=== PATIENT | female | born 1995 ===

== ENCOUNTER 2020-01-06 15:32 | Inpatient (IN) | payer MEDICAID, SELFPAY ==
[2020-01-06 15:57] VITALS: BMI 31.2
--- NOTE | 2020-01-06 16:14 | PDOC.FPROB ---
"FMR OB H&P: HPI - History of Present Illness Chief Complaint: Elevated BP in clinic, low amniotic fluid Indentification: 24yo History of Present Illness: Courtney was seen in clinic today for a growth scan. It was noted that her DEWEY was 1.7 and she was sent to L&D for evaluation and probable delivery. US revealed breech presentation with fundal posterior placenta. Her BP in clinic today was 140/79. Primary Care Physician: TURNER Chery FMR OB H&P: Current - Care : 2 Para: 1001 Gestational age: 38.0 Due date: 01/20/2020 Dating Criteria: LMP/8.0wk sono - OB Labs Blood type: A RH: positive Antibody Screen: negative HIV: negative RPR: negative HepBsAg: negative Rubella: immune 1 hour gtt: Passed GBS: negative Additional labs: Hep C negative - Anatomy Survey Anatomy survey: Normal. Male. Posterior placenta. FMR OB H&P: History - Past Medical History PMH: II/IV heart murmur - OB History OB History: Prior delivered in [place] @ 40wks via pLTCS for arrest of labor. Vertical skin incision. 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 - Family History Family History: Congenital heart defect in 1st cousin, required surgery FMR OB H&P: Medications - Current Home Medications: Medication Instructions Recorded Confirmed Type Pnv No.95/Ferrous Fum/Folic AC 1 tablet PO DAILY 01/06/20 01/06/20 History [ Vitamins Tablet] Allergies/Adverse Reactions: Allergies Allergy/AdvReac Type Severity Reaction Status Date / Time No Known Allergies Allergy Unverified 01/06/20 16:01 FMR OB H&P: ROS - Review of Systems General: denies: fever/chills, weight/appetite/sleep changes, night sweats, fatigue Eyes: denies: eye pain, vision changes ENT: denies: nasal congestion, rhinorrhea, sore throat Cardiovascular: denies: chest pain, palpitation, edema Respiratory: denies: cough, congestion, shortness of breath Gastrointestinal: denies: abdominal pain, nausea, vomiting, diarrhea, constipation Genitourinary (Female): denies: incontinence, dysuria, hematuria Musculoskeletal: denies: pain, stiffness, tenderness Neurologic: denies: numbness, syncope, seizures Integumentary: denies: itching, rash, lesions FMR OB H&P: Vital Signs - Maternal Vital signs: BP 110/60 | Pulse 110 - Heart Tones Baseline: 140 Variability: moderate Acceleration: present Deceleration: absent Category: category 1 [place] contractions every: 3-4 FMR OB H&P: Physical Exam - Physical Exam General: NAD, awake, alert and oriented HEENT: normocephalic and atraumatic, PERRLA, EOMI, MMM, conjunctiva clear, grossly normal vision, grossly normal hearing Neck: supple, trachea midline Breast: symmetric Heart: RRR, normal S1/S2, no edema General: CTAB, no respiratory distress, good air movement, no rales/rhonchi, no wheezing Abdomen: soft, gravid Musculoskeletal: normal gait and station, pulses present Neurological: cranial nerves II through XII intact Skin: no rash, good tugor Lymphatic: no unusual bruising or bleeding, no purpura, no petechia Psychiatric: intact recent and remote memory, good judgement and insight FMR OB H&P: A/P - Problem List (1) Oligohydramnios Current Visit: Yes Status: Acute Code(s): O41.00X0 - OLIGOHYDRAMNIOS, UNSP TRIMESTER, NOT APPLICABLE OR UNSP (2) History of delivery Current Visit: Yes Status: Acute Code(s): Z98.891 - HISTORY OF UTERINE SCAR FROM PREVIOUS SURGERY Disposition: 1. Oligohydramnios - repeat BPP 02/26. DEWEY 1.9. (DEWEY in clinic measured 1.7) - NST reactive. Category 1 strip. - Discussed need for expedited delivery and breech presentation and patient agreed to repeat section. 2. Term sIUP - 38.0 weeks EGA today. NIKA 01/20/2020. - Plan for repeat later tonight or tomorrow morning, depending on staffing. PCP: Dr. Chery, [facility] Discussion: Date/Time: 01/06/20 2252 This H&P was discussed with [] and [] who agree with the above documentation and plan."
[2020-01-06] MEDS ORDERED: Ondansetron PF 4 MG/2 ML Vial IVP PRN (16:17)
[2020-01-06] MEDS ORDERED: hydrALAZINE 20 MG/ML VIAL SLOW IVP PRN (16:17)
[2020-01-06] MEDS ORDERED: Promethazine HCl 25 MG/ML VIAL IM PRN (16:17)
[2020-01-06] MEDS ORDERED: Acetaminophen 500 MG TAB PO PRN (16:17)
[2020-01-06] MEDS: Lactated Ringer's 1,000 ML IV SCH ×2 (16:50→19:04)
[2020-01-06 17:26] LABS: Hemoglobin 12.3 g/dL (12.0-16.0); Mean Corpuscular HGB CONC 33.4 g/dL (32.0-36.0); Mean Corpuscular Hemoglobin 29.5 pg (27.0-31.0); Mean Corpuscular Volume 88.3 fL (78.0-98.0); Mean Platelet Volume 8.1 fL (7.4-10.4); Platelet Count 239 thou/uL (130-400); Red Blood Cell (RBC) Count 4.16 mill/uL (4.20-5.40); White Blood Cell (WBC) Count 9.1 thou/uL (4.8-10.8)
[2020-01-06 18:12] LABS: HIV (1/2) Antibody/Antigen Non-Reactive (NonReactive); HIV 1/2 INDEX 0.13 S/CO (<1.00); Hep B Surf Ag Non-Reactive S/CO (NonReactive); Syphilis Antibody Nonreactive (Nonreactive); Syphilis Antibody Index 0.02 S/CO (<1.00 Non-Reactive)
[2020-01-07] MEDS ORDERED: Bicitra 30 ML UDCUP PO SCH (07:45)
[2020-01-07] MEDS ORDERED: CEFAZOLIN 2 GM in Premix Bag 1 BAG IVPB SCH (07:45)
[2020-01-07] MEDS ORDERED: Bicitra 30 ML UDCUP ONE (07:47)
--- NOTE | 2020-01-07 08:33 | PDOC.BPN ---
- Brief Progress Note 24 year old at 38.1 wks by LMP/8.0 wk sono presented yesterday to L&D due to oligohydramnios and elevated BP's noted in clinic. Patient with history of prior C/S x1. She initially desired TOLAC but was also noted to have breech presentation with low fluid. BPP repeated yesterday upon arrival to L&D and noted to be 8/10, with two points off for fluid. Again, oligohydramnios noted on sono performed yesterday (1.9 cm). No elevated BP's noted since being on L& D. Plan for routine repeat C/S this morning. Discussed plan of care with Dr. Singleton who is agreeable.
--- NOTE | 2020-01-07 08:51 | ULT ---
BIOPHYSICAL PROFILE: History: Low amniotic fluid index in clinic. FINDINGS: Fetus is evaluated over thirty minutes for movement, tone, and breathing. Additiona lly, amniotic fluid is evaluated. Amniotic fluid index equals approximately 1.8 cm, evidence for oligohydramnios. tone, mateo athing, and movements are unremarkable. Fetus is in breech presentation with an anterior placen ta and heart rate of 163 beats/minute. IMPRESSION: biophysical score is 6/8 with low amniotic fluid. These findings were given verbally to Dr. Ritter by the cytogenetics technologist performing the exami inez. POS: INGRID
[2020-01-07] MEDS ORDERED: MORPHINE 5 MG/10 ML PF VIAL ONE (09:30)
[2020-01-07] MEDS ORDERED: PHENYLEPHRINE-NS 100 MCG/ML 10 ML SYRINGE ONE (09:31)
[2020-01-07] MEDS ORDERED: Oxytocin 10 UNITS/ML VIAL ONE ×2 (09:31→14:11)
[2020-01-07] MEDS ORDERED: Dexamethasone 4 mg/ml Vial ONE (09:31)
[2020-01-07] MEDS ORDERED: Ketorolac Tromethamine 30 MG/ML VIAL ONE (09:31)
[2020-01-07] MEDS ORDERED: Ondansetron PF 4 MG/2 ML Vial ONE (09:31)
[2020-01-07] MEDS ORDERED: Naloxone HCl 0.4 mg/ml Vial IV PRN (10:56)
[2020-01-07] MEDS ORDERED: diphenhydrAMINE 50 MG/ML VIAL IVP PRN (10:56)
[2020-01-07] MEDS ORDERED: Naloxone HCl 0.4 mg/ml Vial IVP PRN ×2 (10:56)
[2020-01-07] MEDS ORDERED: Meperidine HCl/PF 25 MG/ML VIAL SLOW IVP PRN (10:56)
[2020-01-07] MEDS ORDERED: Ondansetron HCl/PF 4 MG/2 ML Vial IVP PRN (10:56)
[2020-01-07] MEDS ORDERED: Ondansetron PF 4 MG/2 ML Vial IVP PRN ×2 (10:56→17:20)
[2020-01-07] MEDS ORDERED: Promethazine HCl 25 MG/ML VIAL IM PRN (10:56)
[2020-01-07] MEDS ORDERED: L&D-Morphine 4 MG/ML VIAL SLOW IVP PRN (10:56)
[2020-01-07] MEDS ORDERED: HYDROmorphone 2 MG/ML VIAL SLOW IVP PRN (10:56)
[2020-01-07] MEDS ORDERED: Promethazine HCl 25 MG SUPP PR PRN (10:56)
[2020-01-07] MEDS ORDERED: Ketorolac Tromethamine 30 MG/ML VIAL IVP SCH (11:00)
[2020-01-07] MEDS ORDERED: Communication Order-Pharmacy FS SCH (11:00)
[2020-01-07] MEDS: Lactated Ringer's 1,000 ML IV SCH ×3 (11:44→21:32)
[2020-01-07] MEDS ORDERED: EPHEDRINE 25 MG/5 ML SYRINGE ONE (13:47)
[2020-01-07 14:18] LABS: Actual Bicarbonate (HCO3a) 21.2 mEq/L (22-28); Base Excess (BEa) -4.7 mEq/L (-2.0 to +3.0)
--- NOTE | 2020-01-07 14:43 | PDOC.EVN ---
Event Note - Event Note Event Note: OBGYN CS Note I was scrubbed and assisted with this repeat LTCS for oligo and Narendra breech, Early Term (38 weeks). Surgeons: Vik and Alma as residents. Staff and assist: I assisted with mauriceau maneuver for delivery of head. Baby Data: Apgars 8/9 baby male vigourous, Baby stooled (mec) as we were delivering. Hysterotomy closed in 2 layers with Avatene used for small oozing sites. ABD closed after hemostasis assured. Counts correct. Gases requested due to oligo and breech Skin closed with tiffanie. See full dictation please
--- NOTE | 2020-01-07 15:06 | PDOC.OPDEL ---
OB Operative/Delivery Note - Additional Findings/Plan Compilations/Other Findings: Procedure Note Date of Procedure: Resident Surgeons: Alma / Vik Attending Surgeon: Mani Procedure: Repeat low transverse caesarean section, with vertical skin incision. Preoperative Diagnosis: 1)Term intrauterine 2)Previous 3)oligohydramnios 4) breech Postoperative Diagnosis: 1)same as above plus any other findings during surgery Anesthesia: spinal Indications: The patient is a 24year old female at 38.1 weeks gestation who presents for a repeat indicated for oligohydramnios and breech presentation with history of previous section. . Procedure in Detail: After risks, benefits, and alternatives were explained to the patient, she gave informed consent. Pre-operative antibiotics included Cefazolin 2 gram IV. The patient was taken to the operating room and spinal anesthesia was initiated. She was placed in the supine position with a left tilt and prepped and draped in usual sterile fashion. After excision of the old scar, a vertical skin incision was made with a scalpel and carried down to the level of the fascia which was sharply nicked. The recti were divided digitally and retracted manually. The peritoneum was entered bluntly and retracted manually. An rose mary O retractor was placed. A low transverse score was made with the scalpel and the uterus was entered in the midline with the scalpel. Clear fluid was seen. The hysterotomy was extended manually. The was noted to be jeannette breech and was delivered in usual breech fashion, buttocks first. Mouth and nares were bulb suctioned. Cord clamped and cut and grossly normal male was handed to waiting nurse. Cord blood was obtained. Cord gases were collected. Placenta was manually extracted, found to be intact with 3 vessel cord and discarded. The endometrium was curetted with a dry lap. The uterus was closed with a running locking #1 monocryl suture followed by a running non-locking #1 monocryl imbricating suture. Following this hemostasis was noted. The hysterotomy was again noted to be hemostatic. The fascia was closed with a running non-locking 0-PDS suture. The subcutaneous tissue was irrigated and small bleeders were cauterized with Bovie. The subcutaneous tissue was approximated with 2-0 plain gut suture. The skin was approximated with tiffanie and a pressure dressing was placed. All counts were correct. The patient tolerated the procedure well and was taken to the recovery room in stable condition. Quantified Blood Loss: 550 ml Complications: None Specimens: Cord blood sent to lab for blood type Findings: Grossly normal male with apgars of 8 and 9. Grossly normal placenta with 3 vessel cord discarded. Drains: Salazar to gravity draining clear urine
[2020-01-07] MEDS ORDERED: diphenhydrAMINE 25 MG CAP PO PRN (17:20)
[2020-01-07] MEDS ORDERED: Simethicone Chewable 80 MG TAB PO PRN (17:20)
[2020-01-07] MEDS ORDERED: NS / Oxytocin 40 units/1000ml 1,000 ML IV SCH (17:20)
[2020-01-07] MEDS ORDERED: hydrALAZINE 20 MG/ML VIAL SLOW IVP PRN (17:20)
[2020-01-07] MEDS ORDERED: Lanolin Ointment 7 GM TUBE TOP PRN (17:20)
[2020-01-07] MEDS: Docusate Calcium (SURFAK) 240 MG CAP PO SCH ×2 (21:31→21:32)
[2020-01-07] MEDS: Ferrous Sulfate 325 MG TAB PO SCH (21:31)
[2020-01-07] MEDS: Ketorolac Tromethamine 30 MG/ML VIAL IVP PRN (21:33)
[2020-01-07] MEDS ORDERED: HYDROcodone/Acetaminophen 5/325 mg Tablet PO PRN (23:01)
[2020-01-08] MEDS: Ketorolac Tromethamine 30 MG/ML VIAL IVP PRN (04:38)
--- NOTE | 2020-01-08 05:49 | PDOC.OBPPN ---
FMR OB PN: Subj - Interval History Hospital Day: 3 Day: 1 Chief Complaint: day 1 - doing well. No concerns. Indentification: 24yo G2 now P2002 s/p rLTCS @ 1401 01/07/2020 FMR OB PN: Obj - Maternal Vital signs: Weight 73kg Selected Entries 01/08/20 04:35 Temperature 98.2 F Pulse Rate 77 Blood Pressure 103/59 L [Semi-Fowlers] Respiratory 16 Rate - Urine output I&O: 01/06/20 01/07/20 01/08/20 06:59 06:59 06:59 Output Total 2455 Balance -2455 - Lochia Lochia: Normal FMR OB PN: Exam - Physical Exam General: NAD, awake, alert and oriented HEENT: normocephalic and atraumatic, PERRLA, MMM, grossly normal vision, grossly normal hearing Neck: supple, FROM Breast: symmetric, non-tender Heart: RRR, normal S1/S2, pulses present General: CTAB, no respiratory distress, good air movement Abdomen: soft Musculoskeletal: pulses present Skin: no rash, good tugor : bandage intact, incision healing well, appropriately tender Lymphatic: no unusual bruising or bleeding, no purpura, no petechia Psychiatric: intact recent and remote memory, good judgement and insight, normal mood and affect FMR OB PN: Data - Labs Lab results: Laboratory Results - last 24 hr 01/07/20 14:16 Bicarbonate Actual 21.2 L ABG Base Excess -4.7 L Cord ABG pH 7.321 Cord ABG PCO2 (Romy) 41.9 L FMR OB PN: A/P - Problem List (1) Oligohydramnios Current Visit: Yes Status: Acute Code(s): O41.00X0 - OLIGOHYDRAMNIOS, UNSP TRIMESTER, NOT APPLICABLE OR UNSP (2) History of delivery Current Visit: Yes Status: Acute Code(s): Z98.891 - HISTORY OF UTERINE SCAR FROM PREVIOUS SURGERY Disposition: 1. PPD #1 s/p repeat section (01/07/2020 @ 1401) - H&H Pending - Routine care - Ibuprofen for pain - PNV daily - Encouraged ambulation. Carlita JOHNSON Discussion: Date/Time: 01/08/20 0549 This H&P was discussed with [] and [] who agree with the above documentation and plan.
[2020-01-08 08:14] LABS: Mean Corpuscular HGB CONC 33.5 g/dL (32.0-36.0); Mean Corpuscular Hemoglobin 29.7 pg (27.0-31.0); Mean Corpuscular Volume 88.6 fL (78.0-98.0); Mean Platelet Volume 8.1 fL (7.4-10.4); Platelet Count 184 thou/uL (130-400); RBC Distribution Width 12.9 % (11.5-14.5); Red Blood Cell (RBC) Count 3.36 mill/uL (4.20-5.40); White Blood Cell (WBC) Count 9.8 thou/uL (4.8-10.8)
[2020-01-08] MEDS: Prenatal Vitamin 1 TAB PO SCH (08:29)
[2020-01-08] MEDS: Docusate Calcium (SURFAK) 240 MG CAP PO SCH ×2 (08:30→21:38)
[2020-01-08] MEDS: Ferrous Sulfate 325 MG TAB PO SCH (08:43)
[2020-01-08] MEDS ORDERED: Adacel (T-DAP) 0.5 ML SYRINGE IM ONE (09:00)
[2020-01-08] MEDS: Ibuprofen 800 MG TAB PO SCH ×2 (13:44→21:38)
[2020-01-08] MEDS: HYDROcodone/Acetaminophen 5/325 mg Tablet PO PRN (21:40)
[2020-01-09] MEDS: Ibuprofen 800 MG TAB PO SCH (05:33)
[2020-01-09] MEDS: HYDROcodone/Acetaminophen 5/325 mg Tablet PO PRN (05:33)
[2020-01-09] MEDS: Ferrous Sulfate 325 MG TAB PO SCH ×2 (05:35→08:08)
--- NOTE | 2020-01-09 06:24 | PDOC.PP ---
Post Progress Note Post Day #: 2 Subjective: Feeling well this AM. Tolerating PO. Pain is well controlled w/ medication. Plans to solely bottle feed. PO intake tolerated: yes Flatus: yes Ambulation: yes Vital Signs (12 hours) Temp Pulse Resp BP BP Pulse Ox 01/09/20 05:30 98.9 F 76 16 132/60 01/08/20 20:25 99 F 68 18 129/79 98 01/08/20 20:15 98.9 F 81 18 131/68 98 Weight Weight 72.575 kg - Physical Examination General: NAD Cardiovascular: no m/r/g, RRR Respiratory: clear to auscultation bilaterally Abdominal: + bowel sounds, lochia (downtrending), appropriately TTP Skin: CS incision dry & intact (vertical skin incision w/ tiffanie, no drainage or presence of cirrhoma) Neurological: no gross focal deficits Psychiatric: A&Ox3, normal affect Result Diagrams: 01/08/20 07:59 Additional Labs: Post Labs Blood Type A POSITIVE 01/06/20 18:16 Hep Bs Antigen Non-Reactive S/CO (NonReactive) 01/06/20 16:55 (1) Breech Code(s): O32.1XX0 - MATERNAL CARE FOR BREECH PRESENTATION, UNSP Status: Acute (2) Delivery by section Code(s): [id number] - Status: Acute (3) History of delivery Code(s): Z98.891 - HISTORY OF UTERINE SCAR FROM PREVIOUS SURGERY Status: Acute (4) Oligohydramnios Code(s): O41.00X0 - OLIGOHYDRAMNIOS, UNSP TRIMESTER, NOT APPLICABLE OR UNSP Status: Acute - Assessment/Plan 24 yo now P2 delivered at 38.1 wga: 1. PPD #1 s/p repeat section (01/07/2020 @ 1401) - H&H stable - Routine care - Ibuprofen for pain - PNV daily - Encouraged ambulation. - f/u at PN for staple removal Monday 01/08 to allow healing of vertical skin incision. Dispo: anticipate d/c today.
[2020-01-09 08:01] VITALS: BP 134/74; TEMP 98
[2020-01-09] MEDS: Prenatal Vitamin 1 TAB PO SCH (08:09)
[2020-01-09] MEDS: Docusate Calcium (SURFAK) 240 MG CAP PO SCH (08:09)
== END 2020-01-09 11:45 | disposition home or self-care (01) | DRG 787 ==
LOC: L&D 15:32 → 3SE 01-07 17:45
PROVIDERS: ADMIT Obstetrics & Gynecology; ATTEND Obstetrics & Gynecology
PROC: 10D00Z1 Extraction of Products of Conception, Low, Open Approach (ICD-10-PCS; principal; 2020-01-07)
DX: O34.211 Maternal care for low transverse scar from previous cesarean delivery (principal); O41.03X0 Oligohydramnios, third trimester, not applicable or unspecified; Z3A.38 38 weeks gestation of pregnancy; Z37.0 Single live birth; O32.1XX0 Maternal care for breech presentation, not applicable or unspecified
CPT/HCPCS: 36415; 51702; 76819; 82805; 85027; 86780; 86850; 86900; 86901; 87340; 87389; J0690; J1100; J1885; J2274; J2405; J2590